=== PATIENT | male | born 1985 | race Hispanic/Latino ===

== ENCOUNTER 2020-10-09 21:25 | Emergency (ER) | payer OTHER, SELFPAY ==
[2020-10-09 21:26] VITALS: BP 127/79; PULSE 100; RESP 20; TEMP 39.2; O2SAT 97; BMI 30.7
--- NOTE | 2020-10-09 21:38 | CT_ITS ---
HISTORY: PLEURITIC PAIN/COVID + ADDITIONAL HISTORY: None provided. EXAMINATION/TECHNIQUE: CTA Chest WO/W Contrast Injection PULMONARY EMBOLISM PROTOCOL: 2D and 3D images to include MIP and/or volume rendered images IV CONTRAST: 100mL Isovue-300 Number of images including paperwork: 1220 A radiation dose optimization technique was used for this scan. COMPARISON: None FINDINGS: PULMONARY ARTERIES: No central or large peripheral filling defects. Subsegmental evaluation limited due to contrast bolus timing and motion artifact. AORTA AND GREAT VESSELS: Unremarkable. HEART/PERICARDIUM: Unremarkable. MEDIASTINUM: Unremarkable. ADENOPATHY: No pathologic appearing adenopathy. THYROID: Unremarkable visualized portions. LUNG PARENCHYMA: Multifocal bilateral peripheral predominant airspace opacities. PLEURAL SPACES: Trace bilateral pleural fluid. UPPER ABDOMEN: Decreased hepatic density compatible steatosis. OSSEOUS AND SOFT TISSUE STRUCTURES: No acute skeletal findings. CT/CTA Chest W/WO Contrast IMPRESSION: 1. No central or large peripheral pulmonary embolus. 2. Multifocal bilateral infiltrates are nonspecific but compatible with provided history of COVID 19. Individualized dose optimization techniques were used for this CT. at 2317 Reported and signed by: Meaghan Moyer MD Electronically Signed: Meaghan Moyer MD at 23:17 EST Tel , Service support ,
--- NOTE | 2020-10-09 21:39 | ED.DCSUM_ITS ---
History of Present Illness Informant: Patient, Family Limited by: Language barrier Onset: Days Context: Gradual Onset Timing: Continuous Current Severity: Moderate Maximum Severity: Severe Narrative: The patient is a 34-year-old male with no significant medical history that presents to the emergency department shortness of breath and back pain. The patient began with Covid symptoms around New Year'. He states he had initial test which was negative. Shortly thereafter, he tested positive yesterday. He states that he was at the emergency department and given azithromycin and ibuprofen. He has been having significant upper back pain, difficulty laying flat, and shortness of breath. He states he will get pain where he feels like he cannot take a deep breath and has significant sharp, stabbing pain in his back. He has had persistent fever. He denies leg swelling. He denies nausea or vomiting. He has not found anything that improve the symptoms. Prior similar symptoms: Yes Recent Illness/Hospitalization: Yes <Nilesh Christopher - Last Filed: 10/09/20 22:50> <Julio Romero - Last Filed: 10/09/20 23:42> Chief Complaint: General Illness Past Medical History Prior records reviewed: Yes Past Medical History: None Surgical History: no surgical history <Nilesh Christopher - Last Filed: 10/09/20 22:50> <Julio Romero - Last Filed: 10/09/20 23:42> - Allergies and Home Meds Allergies/Adverse Reactions: Allergies No Known Allergies Allergy (Verified 10/09/20 21:56) Primary Care Physician: NOT,DEFINED [Primary Care Provider] - Review of Systems General: Reports: Fever. Denies: Chills, Sweats Eyes: Denies: Visual changes - bilaterally, Diplopia ENT: Denies: Rhinorrhea, Sore throat Cardiovascular: Reports: Chest pain. Denies: Palpitations Respiratory: Reports: Dyspnea, Cough. Denies: Dyspnea on exertion Gastrointestinal: Denies: Abdominal pain, Nausea, Vomiting, Diarrhea, Melena, Hematochezia Genitourinary: Denies: Dysuria, Hematuria, Frequency Musculoskeletal: Denies: Back pain, Extremity Pain Skin: Denies: Rash, Wounds Neurological: Denies: Headache, Weakness, Numbness <Nilesh Christopher - Last Filed: 10/09/20 22:50> Physical Exam Vital Signs/Narrative: Vital Signs Temp Pulse Resp BP Pulse Ox 10/09/20 21:26 102.5 F H 100 20 H 127/79 H 97 Inital Vital Signs reviewed: Yes General: Well nourished, Well developed, No Acute Distress Head: Normocephalic, Atraumatic Eyes: Perrl, EOMI ENT: Moist mucous membranes, No rhinorrhea Neck: Supple, Nontender Cardiovascular: Regular rate, No murmurs, Tachycardia Respiratory: No distress, Chest nontender, Diminished Abdomen: Soft, Nontender, Nondistended, Normal bowel sounds Back: Nontender, Normal Inspection Extremities: Nontender, No edema Skin: Normal color, No rash Neurological: Alert, Oriented x3, Cranial nerves II-XII grossly intact, Normal Strength, Normal Sensation Psychological: Normal affect, Normal Mood <Nilesh Christopher - Last Filed: 10/09/20 22:50> Vital Signs/Narrative: Vital Signs Temp Pulse Resp BP Pulse Ox 10/09/20 23:28 102.2 F H 86 20 H 113/71 96 10/09/20 22:47 102.2 F H 80 20 H 126/76 H 95 10/09/20 21:54 102.5 F H 100 20 H 127/79 H 97 10/09/20 21:26 102.5 F H 100 20 H 127/79 H 97 <Julio Romero - Last Filed: 10/09/20 23:42> Diagnostic/Tx/Re-eval Abnormal Lab Results 10/09/20 10/09/20 10/09/20 21:58 21:58 21:58 WBC 5.7 RBC 5.01 Hgb 15.1 Hct 43.9 MCV 87.6 MCH 30.1 MCHC 34.4 RDW Std Deviation 38.6 RDW Coeff of Sona 12.2 Plt Count 178 MPV 11.6 Immature Gran % (Auto) 0.400 Neut % (Auto) 71.6 H Lymph % (Auto) 21.3 [place] % (Auto) 6.5 Eos % (Auto) 0.0 Baso % (Auto) 0.2 Absolute Neuts (auto) 4.1 Absolute Lymphs (auto) 1.21 Nucleated RBC % 0 Fibrinogen Cancelled Sodium 139 Potassium 3.9 Chloride 105 Carbon Dioxide 29.0 Anion Gap 5 BUN 7 Creatinine 0.90 Estim Creat Clear Calc 113.47 Est GFR (MDRD) Af Amer 123 Est GFR (MDRD) Non-Af 102 BUN/Creatinine Ratio 7.8 L Glucose 127 H Calcium 8.8 Total Bilirubin 0.40 AST 30 ALT 55 Alkaline Phosphatase 102 Total Protein 7.7 Albumin 3.6 Globulin 4.1 Albumin/Globulin Ratio 0.9 10/09/20 22:25 WBC RBC Hgb Hct MCV MCH MCHC RDW Std Deviation RDW Coeff of Sona Plt Count MPV Immature Gran % (Auto) Neut % (Auto) Lymph % (Auto) [place] % (Auto) Eos % (Auto) Baso % (Auto) Absolute Neuts (auto) Absolute Lymphs (auto) Nucleated RBC % Fibrinogen 613 H Sodium Potassium Chloride Carbon Dioxide Anion Gap BUN Creatinine Estim Creat Clear Calc Est GFR (MDRD) Af Amer Est GFR (MDRD) Non-Af BUN/Creatinine Ratio Glucose Calcium Total Bilirubin AST ALT Alkaline Phosphatase Total Protein Albumin Globulin Albumin/Globulin Ratio - Medical Decision Making The patient presents Covid positive with increasing shortness of breath, back pain, and chest pain. He is not hypoxic but is febrile. With his significant pleuritic pain, I did want to rule out pulmonary embolus. Labs were obtained and are relatively unremarkable. His fibrinogen is elevated, consistent with his Covid infection. The patient was treated with antipyretics and analgesics. Patient underwent CTA which is currently pending. This will be signed out to the oncoming physician. Impression 1. COVID-19 2. Pleurisy <Nilesh Christopher - Last Filed: 10/09/20 22:50> - Medical Decision Making Patient was turned over to me. He appears well. His CTA was negative. I had a long discussion with his , patient has no further questions he is not desaturating he appears well I did instruct that if he worsens he is to return. <Julio Romero - Last Filed: 10/09/20 23:42> ED Disposition <Nilesh Christopher - Last Filed: 10/09/20 22:50> <Julio Romero - Last Filed: 10/09/20 23:42> - Plan for ED Patient: Disposition: Home or Assisted Living Diagnosis: COVID-19 Instructions: Coronavirus Disease 2019 (COVID-19): Overview, Coronavirus Disease 2019 (COVID-19): Caring for Yourself or Others Referrals: Julio Vernon MD [STAFF PHYSICIAN] - 3-5 Days
[2020-10-09] MEDS: Acetaminophen 500 MG Tablet 1000 MG PO (21:47)
[2020-10-09] MEDS: Morphine 4 MG/ML Syringe IV (21:53)
[2020-10-09 21:54] VITALS: BP 127/79; PULSE 100; RESP 20; TEMP 39.2; O2SAT 97
[2020-10-09] MEDS: 0.9% Normal Saline 1,000 ML 125 ML IV (22:05)
[2020-10-09 22:08] LABS: Absolute Lymphocyte Count 1.21 X10^3/uL (0.83-4.51); Absolute Neutrophil Count 4.1 X10^3/uL (2.0-7.7); Basophil# 0.01 X10^3/uL; Basophil% 0.2 % (0-1); Hematocrit 43.9 % (40-54); Hemoglobin 15.1 g/dL (13.0-16.5); Lymphocyte # 1.21 X10^3/ul (4.0); Lymphocyte % 21.3 % (19-41); Mean Corp Hgb Conc 34.4 g/dL (32-36); Mean Corpuscular Hgb 30.1 pg (27.0-32.0); Mean Corpuscular Volume 87.6 fL (80-94); Mean Platelet Vol. 11.6 fl (6.2-12.0); Monocyte# 0.37 X10^3/uL; Monocyte% 6.5 % (0-10); NRBC Flagged by Analyzer 0 % (0-5); Neutrophil # 4.08 X10^3/uL (2.7-7.7); Neutrophil % 71.6 % (47-70); Platelet Count 178 K/mm3 (150-450); RBC Distribution Width CV 12.2 % (11.6-14.6); RBC Distribution Width SD 38.6 fl (35.1-43.9); Red Blood Count 5.01 M/mm3 (4.6-6.2); White Blood Count 5.7 K/mm3 (4.4-11.0)
[2020-10-09 22:22] LABS: ALB/GLOB Ratio 0.9 RATIO (0.9-2.4); AST(SGOT) 30 U/L (15-37); Alanine Aminotransfer ALT/SGPT 55 U/L (16-61); Albumin, Serum 3.6 g/dL (3.2-5.0); Alkaline Phosphatase 102 U/L (45-117); Anion Gap 5 (5-15); BUN 7 mg/dL (7-18); BUN/Creat Ratio 7.8 RATIO (10-20); Calcium,Total 8.8 mg/dL (8.5-10.1); Chloride 105 mmol/L (98-107); EST Glomerular Filtration Rate 102 mL/min (>60); Est Glom Filt Rate - Afr Amer 123 mL/min (>60); Estimated Creatinine Clearance 113.47 ml/min; Globulin 4.1 g/dL (2.2-4.2); Glucose 127 mg/dL (74-106); Potassium 3.9 mmol/L (3.5-5.1); Protein, Total 7.7 g/dL (6.4-8.2); Sodium Level 139 mmol/L (136-145)
[2020-10-09 22:47] VITALS: BP 126/76; PULSE 80; RESP 20; TEMP 39; O2SAT 95
[2020-10-09 22:47] LABS: Fibrinogen 613 mg/dl (203-444)
[2020-10-09 23:06] LABS: Lactic Acid 1.5 mmol/L (0.4-1.9)
[2020-10-09 23:28] VITALS: BP 113/71; PULSE 86; RESP 20; TEMP 39; O2SAT 96
== END 2020-10-09 23:59 | disposition home or self-care (01) ==
PROVIDERS: Emergency Provider Emergency Medicine
DX: U07.1 COVID-19 (principal); R09.1 Pleurisy
CPT/HCPCS: 36415; 71275; 80053; 83605; 85025; 85384; 96361; 96374; 99285; J7030; Q9967; A4216

== ENCOUNTER 2022-05-25 19:58 | Emergency (ER) | payer OTHER, SELFPAY ==
[2022-05-25 19:59] VITALS: BP 137/79; PULSE 55; RESP 16; TEMP 37.1; O2SAT 99; BMI 31.3
--- NOTE | 2022-05-25 20:14 | EDS_ITS ---
HPI History of Present Illness Chief Complaint: Dental Detail of Chief Complaint: Dental pain that started about 9 days ago Informant: patient Narrative Narrative: Patient presents to the emergency department complaint of dental pain that has had for about 9 days. Patient does not speak any Estonian but his translates for him. Patient denies any trauma to his tooth. He denies fever. He has not followed up with a dentist. PFSH PFSH Home Medications azithromycin 250 mg tablet 250 mg PO DAILY 10/09/20 [History Last Taken Unknown] clindamycin HCl 300 mg capsule (Cleocin HCl) 300 mg PO Q6H #40 CAPSULES 05/25/22 [Rx Last Taken Unknown] hydrocodone-acetaminophen 5-325mg 5mg-325mg 1 tab PO Q4H PRN PRN Pain 3 days #14 TABLETS 05/25/22 [Rx Last Taken Unknown] Allergy/AdvReac Type Severity Reaction Status Date / Time No Known Allergies Allergy Verified 05/25/22 20:01 Social History Smoking Status: Never smoker ROS ROS ED Review of Systems ROS Unobtainable: other Constitutional Constitutional ED: Reports lethargy; Denies chills, fever(s), sweats or weight loss Eyes Eyes: Denies blurry vision, change in vision or diplopia ENT ENT ED: Reports other Details: Right lower dental pain ; Denies rhinorrhea or sore throat Cardiovascular Cardiovascular: Reports chest pain and racing heartbeat; Denies orthopnea Respiratory/Chest Respiratory/Chest: Reports dyspnea and dyspnea on exertion; Denies cough, orthopnea or sputum Gastrointestinal Gastrointestinal: Denies abdominal pain, diarrhea, nausea or vomiting Genitourinary Genitourinary ED: Denies dysuria, hematuria or urinary frequency Musculoskeletal Musculoskeletal: Denies arthralgias, back pain, myalgias or neck pain Integumentary Denies abscess, Abrasions or rash Neurologic Neurologic: Denies headache(s) or weakness Psychiatric Psychiatric: Denies anxiety, depression or suicidal thoughts Endocrine Endocrinology: Denies polydipsia, polyphagia or polyuria Hematologic/Lymphatic Hematologic/Lymphatic: Denies easy bleeding, easy bruising or lymphadenopathy Allergic/Immunologic Allergic/Immunologic ED: Denies mouth swelling, tongue swelling or urticaria EXAM Physical Exam Const Vital Signs: 05/25/22 19:59 Temperature 98.8 F Temperature Source Temporal Pulse Rate 55 L Respiratory Rate 16 Blood Pressure 137/79 H Blood Pressure Mean 98 Pulse Ox 99 Oxygen Delivery Method Room Air Positive well nourished and well developed General Appearance ED: well developed and NAD HEENT Reports TM's clear and moist mucous membranes HEENT Narrative: Dentition-patient has an erupting right lower wisdom tooth #32 that is carried and tender to palpation. No gingival erythema or abscess noted. normocephalic and atraumatic; Negative for trauma or tenderness Tympanic Membrane ED: Yes TM's clear Eyes PERRL and EOMs intact bilaterally General Eye ED: Negative for pale conjunctiva or scleral icterus Neck no lymphadenopathy, supple and no JVD General: Negative for tenderness Chest Wall inspection of chest normal and palpation of chest normal Chest: Negative for tenderness Resp normal respiratory effort and clear to auscultation bilaterally Effort and Inspection: Negative for respiratory distress or pain with movement Auscultation: Negative for rhonchi, wheezes or diminished lung sounds Cardio regular rate, regular rhythm, S1 normal heart sound, S2 normal heart sound and no murmurs Peripheral Pulses: pulses 2+ throughout GI normal to inspection, nondistended, normoactive bowel sounds, soft to palpation, non-tender, non-distended and no masses Back/Spine no CVA tenderness and no thoracic nor lumbar tenderness Extremity normal to inspection General Extremety ED: Negative for edema General Extremity: Negative for edema Neuro oriented x3, CN's II-XII intact bilaterally, no sensory deficits noted and gait normal Sensorium / Orientation: awake, alert, oriented to person, oriented to place and oriented to time Motor Exam: strength 5/5 throughout and strength abnormal Psych mental status grossly normal Skin no rashes or lesions noted and no wounds Discharge Plan Triage Chief Complaint: Dental ED Provider: Isacc Andersen Dx/Rx/DC Orders Clinical Impression: Pain, dental, Dental cavity Instructions: ED Dental Pain, ED Dental Cavity Prescriptions: New clindamycin HCl [Cleocin HCl] 300 mg capsule 300 mg PO Q6H Qty: 40 0RF hydrocodone-acetaminophen [hydrocodone-acetaminophen] 5-325 mg tablet 1 tab PO Q4H PRN PRN (Reason: Pain) 3 Days Qty: 14 0RF No Action azithromycin 250 MG tablet 250 mg PO DAILY Primary Care Provider: Care Physician,No Primary Referrals: Care Physician,No Primary [Primary Care Provider] - Activity Restrictions/Additional Instructions: See a dentist at the earliest possible time Disposition Disposition: Home, Self Care
[2022-05-25] MEDS: HYDROcodone Bitartrate/Apap 5/325 Tablet PO (20:24)
[2022-05-25] MEDS: Clindamycin HCl 150 MG Capsule 300 MG PO (20:24)
--- NOTE | 2022-05-25 20:28 | CM.ED ---
SW Note Referral Source: Case Find Referral Reason: No Primary Care Physician (PCP) SW reviewed chart and noted that patient has no PCP. SW provided patient with list of [facility] and [facility] Physician List for reference. ?. No other issues or concerns voiced at this time. SW remains available for any additional needs. Plan: Provided patient with PCP information Sophie RAMSEY
[2022-05-25 21:03] VITALS: BP 130/70; PULSE 59; RESP 16; O2SAT 98
== END 2022-05-25 21:31 | disposition home or self-care (01) ==
PROVIDERS: Emergency Provider Emergency Medicine; Visit Provider Emergency Medicine
DX: K02.9 Dental caries, unspecified (principal)
CPT/HCPCS: 99282

== ENCOUNTER 2022-07-28 20:07 | Emergency (ER) | payer OTHER, SELFPAY ==
[2022-07-28 20:08] VITALS: BP 128/80; PULSE 57; RESP 16; TEMP 35.7; O2SAT 97; BMI 31.3
--- NOTE | 2022-07-28 21:10 | ED.VIS.DENTA ---
HPI History of Present Illness Chief Complaint: Dental Narrative Narrative: 36-year-old male presenting 6 days after having his wisdom teeth removed. He reports that the right side is having more pain. This started about 2 days ago. He noticed a foul taste in his mouth emanating from this area. He does not have any facial swelling. No trouble eating or swallowing. No fever or chills. He states that dentist in [place] took out his teeth. Patient speaks Georgian only and his significant other interprets for him. Patient was on a medication which he took 5 the first day and tapering doses down to 1. Did not know what it was called. They do not know if they are on antibiotics but they were on another pill as well. PFSH PFSH Medical History no medical history Home Medications azithromycin 250 mg tablet 250 mg PO DAILY 10/09/20 [History Last Taken Unknown] clindamycin HCl 300 mg capsule (Cleocin HCl) 300 mg PO Q6H #40 CAPSULES 05/25/22 [Rx Last Taken Unknown] hydrocodone-acetaminophen 5-325mg 5mg-325mg 1 tab PO Q4H PRN PRN Pain 3 days #14 TABLETS 05/25/22 [Rx Last Taken Unknown] amoxicillin 875 mg-potassium clavulanate 125 mg tablet 1 tab PO BID #20 tabs 07/28/22 [Rx Last Taken Unknown] lidocaine HCl 2 % mucosal solution (Lidocaine Viscous) 1 applic mucous membrane Q8H PRN pain #100 mL 07/28/22 [Rx Last Taken Unknown] Allergy/AdvReac Type Severity Reaction Status Date / Time No Known Allergies Allergy Verified 05/25/22 20:01 Surgical History no surgical history Social History Smoking Status: Never smoker ROS ROS ED Constitutional Constitutional ED: Denies chills or fever(s) Eyes Eyes: Denies change in vision ENT ENT ED: Reports other Details: Dental pain ; Denies rhinorrhea or sore throat Cardiovascular Cardiovascular: Denies chest pain or palpitations Respiratory/Chest Respiratory/Chest: Denies cough or dyspnea Gastrointestinal Gastrointestinal: Denies abdominal pain or constipation Genitourinary Genitourinary ED: Denies dysuria Musculoskeletal Musculoskeletal: Denies arthralgias Integumentary Denies abscess or Abrasions Neurologic Neurologic: Denies headache(s) Psychiatric Psychiatric: Denies anxiety or depression EXAM Physical Exam Const Vital Signs: 07/28/22 20:08 Temperature 96.2 F L Temperature Source Temporal Pulse Rate 57 L Respiratory Rate 16 Blood Pressure 128/80 H Blood Pressure Mean 96 Pulse Ox 97 Oxygen Delivery Method Room Air Positive well nourished General Appearance ED: NAD HEENT HEENT Narrative: The area where the right wisdom tooth was removed shows a small defect. There is no active drainage from the site. There is some erythema and swelling here. It is tender to palpation. No sublingual edema. Tongue is normal size. Little bit of Negative for trauma Mouth ED: Yes lips normal, Yes tongue normal and Yes salivary gland normal Mouth: lips normal, tongue normal and salivary gland normal Teeth and Gingiva: abnormal tooth and associated gingiva Throat: posterior oropharynx normal GI normal to inspection, nondistended, normoactive bowel sounds Back/Spine no CVA tenderness Neuro oriented x3, CN's II-XII intact bilaterally, moves all extremities, no focal motor deficits and no sensory deficits noted Sensorium / Orientation: alert Motor Exam: strength 5/5 throughout Psych mental status grossly normal Skin no rashes or lesions noted MDM MDM MDM Narrative Medical decision making narrative: Physical exam most consistent with a dry socket. Patient is complaining of swelling and drainage from the site. He will be covered with antibiotics for home. He is taking ibuprofen and Tylenol. Doses. He states he could call his dentist tomorrow. I will give him some viscous lidocaine to swish and spit. He is also supposed to swish with salt water after he eats meals to make sure this is clear. I do not believe that he needs any narcotics at this time. Impression: 1. Dry socket Lab Data Attestation: I reviewed the patient's lab results. Discharge Plan Triage Chief Complaint: Dental ED Provider: Maged Thompson Dx/Rx/DC Orders Instructions: ED Dry Socket Prescriptions: New amoxicillin-pot clavulanate 875-125 mg tablet 1 tab PO BID Qty: 20 0RF lidocaine HCl [Lidocaine Viscous] 2 % solution 1 applic mucous membrane Q8H PRN (Reason: pain) Qty: 100 0RF No Action azithromycin 250 MG tablet 250 mg PO DAILY clindamycin HCl [Cleocin HCl] 300 mg capsule 300 mg PO Q6H Qty: 40 0RF hydrocodone-acetaminophen [hydrocodone-acetaminophen] 5-325 mg tablet 1 tab PO Q4H PRN PRN (Reason: Pain) 3 Days Qty: 14 0RF Primary Care Provider: Care Physician,No Primary Referrals: Care Physician,No Primary [Primary Care Provider] - Print Language: Georgian Disposition Disposition: Home, Self Care Discharge Date/Time: 07/28/22 21:45
[2022-07-28] MEDS: Amox/Clavulanate 875 MG Tablet PO (21:16)
== END 2022-07-28 21:45 | disposition home or self-care (01) ==
PROVIDERS: Emergency Provider Student in an Organized Health Care Education/Training Program; Visit Provider Student in an Organized Health Care Education/Training Program
DX: M27.3 Alveolitis of jaws (principal)
CPT/HCPCS: 64999; 99281; 99283